=== PATIENT | male | born 1960 | race Caucasian/White ===

== ENCOUNTER → 2016-08-11 | Outpatient (CLI) | payer OTHER ==
[2016-08-11 13:59] LABS: ANION GAP 13.1 (10.0-19.0); BLOOD UREA NITROGEN 18 mg/dL (6-24); CALCIUM 8.9 mg/dL (8.5-10.5); CHLORIDE 106 mMol/L (96-110); CO2 25 mMol/L (22-32); CREATININE 1.1 mg/dL (0.6-1.3); ESTIMATED GFR (MDRD EQUATION) > 60; POTASSIUM 4.1 mMol/L (3.7-5.1); SODIUM 140 mMol/L (135-145)
== END | disposition disaster alternative care site (69) ==
LOC: LGSOS 13:39
PROVIDERS: Internal Medicine Interventional Cardiology
DX: I48.91 Unspecified atrial fibrillation (principal)

== ENCOUNTER → 2016-08-14 | Outpatient (CLI) | payer OTHER ==
--- NOTE | ~2016-08-14 | ECHO ---
Transthoracic Echocardiography Report (TTE) Demographics Patient Name YADIRA REBOLLAR Date of Study 08/14/2016 Patient Number [id number] Visit Number [id number] Date of 1960 Room Number Gender Male Number Age 56 year(s) Referring Anna Schmidt Cigar Patcher Eli Wong MD [facility] Physician Interpreting Anna Schmidt Crusher Screen Repairer Physician Supervising Ordering MD/MLP Physician Nurse Stress Perfusionist Conclusions Summary Technically difficult exam Mild concentric left ventricular hypertrophy with normal EF,WM and internal dimensions. Mild biatrial dilatation. Increased pressures in both the atria. Procedure Type of Study TTE procedure:2D Echocardiogram. Procedure Date Date: 08/14/2016 Start: 01:05 PM Study Location: Inpatient Portable Technical Quality: Adequate visualization Indications:S/p atrial mass resection. Appropriate Use Criteria: 9 Patient Status: Routine HR: 80 bpm BP: 119/68 mmHg M-Mode/2D Measurements LV Diastolic Dimension: 4.34 cm LV Systolic Dimension: 2.57 cm LV Septum Diastolic: 1.23 cm LV PW Diastolic: 1.22 cm AO Root Dimension: 2.2 cm Cardiac Output: 5.23 l/min AV Cusp Separation: 2.3 cm RV Diastolic Dimension: 3.17 cm EF Estimated: 60 % LVOT: 2.1 cm LVOT VTI: 18.9 cm LV Stroke volume: 65.43 ml TDI-S': 12.4 cm/s Doppler Measurements AV Peak Velocity: 1.32 m/s MV Peak E-Wave: 0.84 m/s AV Peak Gradient: 6.97 mmHg MV Peak A-Wave: 0.59 m/s AV Mean Gradient: 4 mmHg MV E/A Ratio: 1.43 LVOT Peak Velocity: 1.1 m/s MV P1/2t: 28 msec TR Gradient:3.41 mmHg PV Peak Velocity: 0.9 m/s PV Peak Gradient: 3.23 mmHg E' Septal Velocity: 0.09 m/s Findings Left Ventricle Mild concentric left ventricular hypertrophy with normal EF,WM and internal dimensions. Right Ventricle Normal right ventricle structure and function. Left Atrium The left atrium is mildly dilated. Increased LA pressures. Right Atrium Mildly dilated RA. Increased RA pressures. Mitral Valve Normal mitral valve structure and function. Aortic Valve Normal aortic valve structure and function. Tricuspid Valve Normal tricuspid valve structure and function. Pulmonic Valve Normal pulmonic valve structure and function. Pericardial Effusion No evidence of pericardial effusion. Miscellaneous Visualized portions of the aortic root and ascending aorta appear normal in size. Pleural Effusion No evidence of pleural effusion. Contractility Score LV regional wall motion:(0-Non visualized 1-Normal 2-Hypokinesis 3-Akinesis 4-Dyskinesis 5-Aneurysm) Signature dtt: Roxana Castillo dtd: 08/14/16 3068 Physician Self Edit
== END | disposition disaster alternative care site (69) ==
LOC: GCAR 12:51
DX: I48.91 Unspecified atrial fibrillation (principal); I51.7 Cardiomegaly; I72.9 Aneurysm of unspecified site
CPT/HCPCS: Q9957

== ENCOUNTER → 2017-01-07 | Outpatient (CLI) | payer OTHER ==
[2017-01-07 09:38] LABS: ALBUMIN 3.4 gm/dL (3.5-5.0); CALCIUM 8.6 mg/dL (8.5-10.5); TOTAL PROTEIN 7.4 g/dL (6.0-8.4)
== END | disposition disaster alternative care site (69) ==
LOC: LGSOS 17:50 → LCNC 17:50
PROVIDERS: Internal Medicine Interventional Cardiology
DX: E11.9 Type 2 diabetes mellitus without complications (principal); E78.5 Hyperlipidemia, unspecified